=== PATIENT | female | born 1940 | race Caucasian/White ===

== ENCOUNTER 2021-03-06 11:14 | Emergency (ER) | payer MEDICARE, OTHER ==
[2021-03-06 12:37] LABS: HEMOGLOBIN 13.2 gm/dl (12.3-15.3); RED BLOOD COUNT 4.65 M/UL (4.00-5.10); WHITE BLOOD COUNT 5.3 K/UL (4.5-11.0)
[2021-03-06 13:14] LABS: BUN/CREATININE RATIO 20 (0-10)
[2021-03-06] MEDS ORDERED: AZITHROMYCIN250 MG PO (16:32)
[2021-03-06] MEDS ORDERED: ZOFRAN ODT 4 MG4 MG PO (16:32)
== END 2021-03-06 16:37 | disposition home or self-care (01) ==
LOC: ER1 11:14
PROVIDERS: Family Medicine
DX: Z23 Encounter for immunization (principal); U07.1 COVID-19; J12.82 Pneumonia due to coronavirus disease 2019; E11.65 Type 2 diabetes mellitus with hyperglycemia
CPT/HCPCS: 36600; 71045; 80053; 82550; 82553; 82803; 83605; 83874; 84484; 85025; 93005; 99284; M0243